=== PATIENT | female | born 1970 | race Caucasian/White ===

== ENCOUNTER 2019-07-24 16:28 | Emergency (ER) | payer OTHER ==
[~2019-07-24] VITALS: Ht 162.6 cm; Wt 88.1 kg
[~2019-07-24 16:28] MED LIST: LEVO175T5 PO; LISI1TAB20 PO
[2019-07-24 16:33] VITALS: BP 130/81
[2019-07-24 17:03] LABS: BASOPHILS # (AUTO) 0.04 x10^3/uL (0-0.1); BASOPHILS % (AUTO) 0 % (0-1); EOSINOPHILS # (AUTO) 0.24 x10^3/uL (0-0.4); EOSINOPHILS % (AUTO) 3 % (1-7); LYMPHOCYTES # (AUTO) 2.71 x10^3/uL (1-3.4); LYMPHOCYTES % (AUTO) 31 % (22-44); MD NO; MEAN CORPUSCULAR HEMOGLOBIN 32.4 pg (27.0-34.8); MEAN CORPUSCULAR HGB CONC 33.9 g/dL (32.4-35.8); MEAN CORPUSCULAR VOLUME 95.7 fL (80-100); MEAN PLATELET VOLUME 8.4 fL (7.4-10.4); MONOCYTES # (AUTO) 0.85 x10^3/uL (0.2-0.8); MONOCYTES % (AUTO) 10 % (2-9); NEUTROPHILS # (AUTO) 4.82 x10^3/uL (1.8-6.8); NEUTROPHILS % (AUTO) 56 % (42-75); PLATELET COUNT 429 x10^3/uL (130-400); RED BLOOD COUNT 4.45 x10^6/uL (3.82-5.3); RED CELL DISTRIBUTION WIDTH 13.7 % (9.6-15.2)
[2019-07-24 17:11] LABS: ALANINE AMINOTRANSFERASE 45 U/L (12-78); ANION GAP 7 mmol/L (5-15); CALCIUM 9.2 mg/dL (8.5-10.1); CHLORIDE 109 mmol/L (98-107); CREATININE 0.86 mg/dL (0.55-1.02)
[2019-07-24 17:22] LABS: ALKALINE PHOSPHATASE 77 U/L (45-117); BILIRUBIN,TOTAL 0.3 mg/dL (0.2-1.0); TOTAL PROTEIN 7.8 g/dL (6.4-8.2)
[2019-07-24 17:36] LABS: FREE T4 (FREE THYROXINE) 1.25 ng/dL (0.76-1.46)
--- NOTE | 2019-07-24 19:31 | NUR ---
PT AMBULATES FROM LOBBY TO ROOM WITH STEADY GAIT. AWAITING ERP AT THIS TIME.
--- NOTE | 2019-07-24 20:03 | NUR ---
PT ATTACHED TO BP CUFF AND PULSE OXIMETER. PT VSS AT THIS TIME. AWAITING NEW ORDERS OR INTERVENTIONS FROM ERP. PT HAS CALL LIGHT WITHIN REACH AND VERBALIZES UNDERSTANDING OF ER PROCESS.
--- NOTE | 2019-07-24 21:06 | NUR ---
TO ROOM FOR DISCHARGE, PT NOT IN ROOM PRIMARY NURSE BELIEVES PT LEFT.
--- NOTE | 2019-07-24 21:09 | NUR ---
ATTEMPT TO CALL PT BASED ON INFORMATION IN CHART, NO ACTIVE PHONE NUMBER. WILL HOLD RX AT NURSES STATION
== END 2019-07-24 21:11 | disposition left against medical advice (07) ==
LOC: ED 21:05
DX: R19.7 Diarrhea, unspecified (principal); R10.9 Unspecified abdominal pain
CPT/HCPCS: 36415; 80053; 83690; 84439; 84443; 85025; 99283